=== PATIENT | male | born 1955 | race Caucasian/White ===

== ENCOUNTER → 2017-12-18 16:09 | Outpatient (CLI) | payer OTHER, SELFPAY ==
[2017-12-18 17:50] LABS: PSA,Total- Diagnostic 4.62 ng/mL (0.0-4.0)
== END ==
PROVIDERS: Family Provider Family Medicine; PCP Family Medicine; Visit Provider Urology
DX: C61 Malignant neoplasm of prostate (principal)
CPT/HCPCS: 36415; 84153

== ENCOUNTER → 2018-06-04 09:51 | Outpatient (CLI) | payer OTHER, SELFPAY ==
[2018-06-04 10:56] LABS: PSA,Total- Diagnostic 3.63 ng/mL (0.0-4.0)
== END ==
PROVIDERS: Family Provider Family Medicine; PCP Family Medicine; Referring Provider Urology; Visit Provider Urology
DX: C61 Malignant neoplasm of prostate (principal)
CPT/HCPCS: 36415; 84153

== ENCOUNTER → 2019-03-04 15:00 | Outpatient (CLI) | payer MEDICARE, OTHER, SELFPAY ==
[2016-05-05 08:30] VITALS: BMI 32.3
== END ==
PROVIDERS: Referring Provider Urology; Visit Provider Urology
DX: C61 Malignant neoplasm of prostate (principal)
CPT/HCPCS: 36415; 84153

== ENCOUNTER → 2020-03-08 09:36 | Outpatient (CLI) | payer MEDICARE, OTHER, SELFPAY ==
[2016-05-05 08:30] VITALS: BMI 32.3
[2020-03-08 11:38] LABS: PSA,Total - Annual Screen 3.09 ng/mL (0.00-4.00)
== END ==
PROVIDERS: Referring Provider Urology; Visit Provider Urology
DX: C61 Malignant neoplasm of prostate (principal)
CPT/HCPCS: 36415; 84153; G0103

== ENCOUNTER → 2021-03-29 11:08 | Outpatient (CLI) | payer MEDICARE, OTHER, SELFPAY ==
[2021-03-29 12:53] LABS: PSA,Total- Diagnostic 3.31 ng/mL (0.0-4.0)
[2021-03-29 13:52] LABS: Bacteria 0 SEEN /hpf (None Seen); Mucous, Urine 0 SEEN /hpf (<or=2+); Red Blood Cells-Urine 0 SEEN /hpf (0-5); Squamous Epithelial Cells - UA 0 SEEN /hpf (0-5); White Blood Cells 0 SEEN /hpf (0-5)
[2021-03-29 14:06] LABS: Color, Urine Yellow (Yellow); Glucose, Dipstick Normal (Normal); Ketone-Dipstick Negative (Negative); Leukocyte Esterase-Dipstick Negative /ul (Negative); Nitrite-Dipstick Negative (Negative); Occult Blood-Urine 10 /ul (Negative); Protein-Dipstick Negative (Negative); Specific Gravity, Urine 1.015 (1.002-1.030); Urine Bilirubin Dipstick Negative (Negative); Urine Clarity Clear (Clear); Urine Urobilinogen Normal (Normal)
== END ==
PROVIDERS: PCP Family Medicine; Referring Provider Nurse Practitioner Adult Health; Visit Provider Nurse Practitioner Adult Health
DX: C61 Malignant neoplasm of prostate (principal); R31.21 Asymptomatic microscopic hematuria
CPT/HCPCS: 36415; 81001; 84153

== ENCOUNTER 2021-09-05 14:56 | Outpatient (CLI) | payer MEDICARE, OTHER, SELFPAY | END 2021-09-05 23:59 | disposition short-term general hospital (02) | LOC: LAB 14:57 | PROVIDERS: PCP Family Medicine; Visit Provider Urology | DX: C61 Malignant neoplasm of prostate (principal) | CPT/HCPCS: 36415; 84153 ==

== ENCOUNTER 2021-09-07 10:55 | Outpatient (CLI) | payer MEDICARE, OTHER, SELFPAY ==
[2021-09-07 12:41] LABS: Anion Gap 8 (5-15); BUN 21 mg/dL (7-18); BUN/Creat Ratio 17.4 RATIO (10-20); Calcium,Total 8.3 mg/dL (8.5-10.1); Chloride 107 mmol/L (98-107); Creatinine, Serum 1.21 mg/dL (0.70-1.30); EST Glomerular Filtration Rate 64 mL/min (>60); Est Glom Filt Rate - Afr Amer 77 mL/min (>60); Glucose 101 mg/dL (74-106); Potassium 3.7 mmol/L (3.5-5.1); Sodium Level 140 mmol/L (136-145)
== END 2021-09-07 23:59 | disposition short-term general hospital (02) ==
LOC: LAB 10:57
PROVIDERS: PCP Family Medicine; Visit Provider Urology
DX: N40.1 Benign prostatic hyperplasia with lower urinary tract symptoms (principal)
CPT/HCPCS: 36415; 80048

== ENCOUNTER → 2022-03-09 | Outpatient (CLI) | payer MEDICARE, OTHER, SELFPAY ==
[2022-03-09 10:24] LABS: PSA,Total- Diagnostic 3.31 ng/mL (0.0-4.0)
== END | disposition home or self-care (01) ==
LOC: LAB 09:26
PROVIDERS: Visit Provider Urology
DX: C61 Malignant neoplasm of prostate (principal)
CPT/HCPCS: 36415; 84153

== ENCOUNTER → 2022-03-13 | Outpatient (CLI) | payer MEDICARE, OTHER, SELFPAY ==
[2022-03-13 11:03] LABS: Anion Gap 6 (5-15); BUN 24 mg/dL (7-18); BUN/Creat Ratio 16.3 RATIO (10-20); Calcium,Total 8.9 mg/dL (8.5-10.1); Chloride 108 mmol/L (98-107); Creatinine, Serum 1.47 mg/dL (0.70-1.30); EST Glomerular Filtration Rate 51 mL/min (>60); Est Glom Filt Rate - Afr Amer 61 mL/min (>60); Glucose 87 mg/dL (74-106); Potassium 3.9 mmol/L (3.5-5.1); Sodium Level 141 mmol/L (136-145)
== END | disposition home or self-care (01) ==
LOC: LAB 09:48
PROVIDERS: Referring Provider Registered Nurse; Visit Provider Registered Nurse
DX: M54.50 Low back pain, unspecified (principal)
CPT/HCPCS: 36415; 80048

== ENCOUNTER → 2022-04-03 | Outpatient (CLI) | payer MEDICARE, OTHER, SELFPAY ==
--- NOTE | 2022-04-03 07:54 | MRI_ITS ---
STUDY: MR PELVIS WITH T WITHOUT CONTRAST REASON FOR EXAM: Male, 67 years old. MALIGNANT NEOPLASM OF PROSTATE TECHNIQUE: Standardized fat and water weighted pulse sequences were obtained in all 3 orthogonal planes, pre-and post contrast administration. IV Yes yes was administered for the contrast portion of the examination. COMPARISON: None. FINDINGS: Prostate: Prostate measures 4.62 cm AP by 4.67 cm transverse by 4.91 cm craniocaudal. There is no evidence of extension beyond the prostate capsule. Central zone: On series 13 image 26 there is an enhancing nodule within the anterior central zone. This measures 1.8 cm transverse by 1.5 cm AP best visualized on series 13 image 26. This may represent the patient''s prostate carcinoma. Peripheral zone no evidence of focal abnormal contrast enhancement or nodule. Normal urinary bladder. Normal visualized small intestine. Normal visualized colon. There is no pelvic fluid. There is no pelvic mass lesion or lymphadenopathy. Normal visualized pelvic arteries. Normal osseous structures. Normal abdominal wall. MRI/Pelvis W/WO Contrast IMPRESSION: Enlarged prostate. Enhancing nodule within the anterior left central zone detailed in body of report. This may represent the patient''s biopsy proven prostate carcinoma. Correlation advised. Electronically Signed: Awais Riggins MD, TOMASZ at 10:02 EDT ,
== END | disposition home or self-care (01) ==
PROVIDERS: Referring Provider Urology; Visit Provider Urology
DX: C61 Malignant neoplasm of prostate (principal)
CPT/HCPCS: 72197; A9575

== ENCOUNTER → 2022-09-13 | Outpatient (CLI) | payer MEDICARE, OTHER, SELFPAY ==
[2022-09-13 16:40] LABS: PSA,Total- Diagnostic 3.44 ng/mL (0.0-4.0)
== END | disposition home or self-care (01) ==
LOC: LAB.FUTURE 15:10
PROVIDERS: Referring Provider Urology; Visit Provider Urology
DX: R97.20 Elevated prostate specific antigen [PSA] (principal)
CPT/HCPCS: 36415; 84153

== ENCOUNTER → 2023-03-15 | Outpatient (CLI) | payer MEDICARE, OTHER, SELFPAY ==
[2023-03-15 10:44] LABS: PSA,Total- Diagnostic 2.92 ng/mL (0.0-4.0)
== END | disposition home or self-care (01) ==
LOC: LAB 09:34
PROVIDERS: Referring Provider Urology; Visit Provider Urology
DX: C61 Malignant neoplasm of prostate (principal)
CPT/HCPCS: 36415; 84153

== ENCOUNTER → 2024-03-18 | Outpatient (CLI) | payer MEDICARE, OTHER, SELFPAY ==
[2024-03-18 13:44] LABS: PSA,Total- Diagnostic 3.92 ng/mL (0.0-4.0)
== END | disposition home or self-care (01) ==
LOC: LAB 12:32
PROVIDERS: Referring Provider Urology; Visit Provider Urology
DX: C61 Malignant neoplasm of prostate (principal)
CPT/HCPCS: 36415; 84153

== ENCOUNTER 2025-04-07 11:54 | Day surgery (SDC) | payer OTHER, SELFPAY ==
--- NOTE | 2025-04-02 17:13 | PAT.ANE_ITS ---
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 When Was Last Pacemaker Check QUESTION #4 FULL TEXT: You/Your Family Experience fever (hyperthermia) with Anesthesia Last Oral Intake Last Oral intake: Last Oral Intake NPO since Meds taken in AM with sips of water? Meds patient instructed to take am of surgery PONV PONV - selvage machine operator: PONV - selvage machine operator Female No 04/02/25 11:25 HX of Motion Sickness No 04/02/25 11:25 HX of N/V After Surgery No 04/02/25 11:25 Non-Smoker Yes 04/02/25 11:25 Duration of Surgery greater No 04/02/25 11:25 than 60 minutes Number of Risk Factors 1 04/02/25 11:25 PONV Score Low Risk 04/02/25 11:25 Respiratory Assessment Respiratory Assessment - selvage machine operator: Respiratory Tract Infection Hx - selvage machine operator Hx Respiratory Tract Infection No 04/02/25 11:25 STOP Sleep Apnea STOP Sleep Apnea - selvage machine operator: STOP Sleep Apnea - selvage machine operator Hx Hypertension Yes: CONTROLLED WITH MED 04/02/25 11:25 Hx Sleep Apnea Yes 04/02/25 11:25 CPAP Yes 04/02/25 11:25 BIPAP No 04/02/25 11:25 Do you snore loudly (louder than talking or can be heard Do you often feel tired/ fatigued/ sleepy during daytime? Has anyone observed you stop breathing during sleep? STOP Results Positive 04/02/25 11:25 QUESTION #5 FULL TEXT : Do you snore loudly (louder than talking or can be heard through closed doors)? 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 Specify any problems Hx of Preganancy in last 3 N/A 04/02/25 11:25 Months Nurse Filling Out Transfusion DSCHRIBER 04/02/25 11:25 & Questions: Date: 04/02/25 04/02/25 11:25 Time: 11:04/02/25 11:25 Patient unable to answer at this time (ie. confused, unrespo /Reproduction History /Reproductive History - selvage machine operator: /Reproductive Hx- selvage machine operator Hx Now No 04/02/25 11:25 Gestational Age (in weeks): EDC: Hx Hx Para Hx Section SAB No 04/02/25 11:25 PFSH Medical History (Updated 04/02/25 @ 13:13 by Martha Krishnamurthy) Loss of hearing Wears glasses Arthritis Low iron Fatty liver Restless legs Back pain Difficulty swallowing History of diverticulitis Non-smoker CPAP (continuous positive airway pressure) dependence Shortness of breath on exertion Leg cramps History of edema History of echocardiogram History of stress test Cardiology follow-up encounter History of irregular heartbeat Grade A2 albuminuria Exophthalmos Prostate cancer Left ventricular hypertrophy Dyslipidemia Essential (primary) hypertension Chronic kidney disease, stage 3b Home Medications ?Medication ?Instructions ?Recorded ?Last Taken ?Type tamsulosin 0.4 mg capsule 0.4 mg PO DAILY 10/13/14 22:00 History evolocumab 140 mg/mL subcutaneous 140 mg subcut Q2W Unknown History syringe ferrous sulfate 325 mg (65 mg 325 mg PO QDAY 11/21/24 Unknown History iron) tablet finasteride 5 mg tablet 5 mg PO QDAY 11/21/24 Unknow n History furosemide 20 mg tablet 20 mg PO QAM 11/21/24 Unknow n History hydralazine 100 mg tablet 100 mg PO BID 11/21/24 Unkno wn History dapagliflozin propanediol 5 mg 10 mg PO QAM 11/24/24 0 04/01/25 History tablet (Farxiga) amlodipine 2.5 mg tablet 2.5 mg PO DAILY 04/02/25 Unk nown History carvedilol 25 mg tablet 25 mg PO BID 04/02/25 Unknow n History losartan 100 mg tablet 100 mg PO QHS 04/02/25 Unkno wn History Allergy/AdvReac Type Severity Reaction Status Date / Time cephalexin Allergy Intermediate Rash Verified 04/02/25 11:19 isosorbide Allergy Intermediate Other Verified 04/02/25 11:19 pravastatin Allergy Intermediate Other Verified 04/02/25 11:19 lisinopril Allergy Other Verified 04/02/25 11:19 Family History Mother Cancer Brother CAD (coronary artery disease) Hypertension Father Hypertension Heart disease Myocardial infarction Surgical History (Updated 04/02/25 @ 13:13 by Martha Krishnamurthy) History of cardiac catheterization History of esophagogastroduodenoscopy (EGD) Hx of cystoscopy H/O resection of large bowel History of tonsillectomy and adenoidectomy H/O hernia repair Social History Smoking Status: Never smoker Audit: Pertinent Findings Pertinent Findings EKG Perinent findings: 02/12/2015. Normal sinus rhythm. Left anterior fascicular block. Poor R wave progression. Stress test pertinent findings: 11/30/2020. EKG is negative for inducible ischemia. EF is 70%. Negative for gross ischemia or infarct. Echo (EF%) pertinent findings: 02/09/25. EF=55%. RVSP =21mmHg. No aortic stenosis. Heart catheterization pertinent findings: 08/16/2021. EF of 65%. 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 Mid RCA has a 60% stenosis. Moderate CAD will be managed medically. Consult pertinent findings: March 31, 2025. Dr. Taylor. 1. Coronary artery disease in [place] artery-moderate RCA disease on heart cath in 2021. Denies angina. 2. Aortic regurgitation?mild to moderate in February 2025. Slight progression from previous. Ascending aorta is 3.9 cm. 3. Hypertension?well-controlled on amlodipine, Coreg, hydralazine and losartan. Additional pertinent findings: Holter monitor. 05/12/2023. Baseline rhythm was sinus rhythm. No evidence of atrial flutter or fibrillation. No evidence of ventricular tachycardia. Frequent PACs, total burden was 8.9%. Rare PVCs, total burden less than 0.01% Recommendation Anesthesia Recommendation Anesthesia recommendation: OPTIMIZED for anesthesia
[2025-04-07] VITALS (8 sets, daily range): BP systolic 103–152; BP diastolic 64–88; PULSE 60–68; RESP 16; TEMP 36.2; O2SAT 95–99; BMI 32.9
--- NOTE | 2025-04-07 12:24 | PCM.HP.STD ---
HPI - General General Date of Admission: 04/07/25 Date of Service: 04/07/25 Chief Complaint: GERD, Dysphagia and Screening colon HPI Narrative CARLOTA HERNANDEZ, is a 70 M who presents for c/o difficulty swallowing and time for screening colonoscopy. He reports history of diverticulitis with bowel resection and occasional constipation, but that is not his concern today. He states that he's been told that he has frequent coughing spells after eating mainly. He denies noting any specific foods that trigger difficulties, he states he feels that he simply eats too fast and causes things to get hung up. 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 MBSS completed at [facility]; suggestive of reduced UES opening and reduced esophageal clearance w/bolus retention. Recommendations: regular diet/thin liquids, small and alternating bites/sips, pills one at a time, full upright position x60min after all PO intake, no ST warranted for oropharyngeal swallow, GI referral for esophageal function. He reports rare incidence of abdominal pain after eating, but this goes away after a BM. He denies difficulty chewing, rarely has heartburn, reflux, bloating, diarrhea, hematochezia, and melena. He reports occasional constipation but does feel that he needs to do anything about it. [facility] Medical History Loss of hearing Wears glasses Arthritis Low iron Fatty liver Restless legs Back pain Difficulty swallowing History of diverticulitis Non-smoker CPAP (continuous positive airway pressure) dependence Shortness of breath on exertion Leg cramps History of edema History of echocardiogram History of stress test Cardiology follow-up encounter History of irregular heartbeat Grade A2 albuminuria Exophthalmos Prostate cancer Left ventricular hypertrophy Dyslipidemia Essential (primary) hypertension Chronic kidney disease, stage 3b Home Medications ?Medication ?Instructions ?Recorded ?Last Taken ?Type tamsulosin 0.4 mg capsule 0.4 mg PO DAILY 10/13/14 05/04/16 22:00 History evolocumab 140 mg/mL subcutaneous 140 mg subcut Q2W 11/21/24 Unknown History syringe ferrous sulfate 325 mg (65 mg 325 mg PO QDAY 11/21/24 Unknown History iron) tablet finasteride 5 mg tablet 5 mg PO QDAY 11/21/24 Unknown History furosemide 20 mg tablet 20 mg PO QAM 11/21/24 Unknown History hydralazine 100 mg tablet 100 mg PO BID 11/21/24 04/07/25 History dapagliflozin propanediol 5 mg 10 mg PO QAM 11/24/24 04/01/25 History tablet (Farxiga) amlodipine 2.5 mg tablet 2.5 mg PO DAILY 04/02/25 04/07/25 History carvedilol 25 mg tablet 25 mg PO BID 04/02/25 04/07/25 History losartan 100 mg tablet 100 mg PO QHS 04/02/25 Unknown History Allergy/AdvReac Type Severity Reaction Status Date / Time cephalexin Allergy Intermediate Rash Verified 04/07/25 12:14 isosorbide Allergy Intermediate Other Verified 04/07/25 12:14 pravastatin Allergy Intermediate Other Verified 04/07/25 12:14 lisinopril Allergy Other Verified 04/07/25 12:14 Family History Mother Cancer Brother CAD (coronary artery disease) Hypertension Father Hypertension Heart disease Myocardial infarction Surgical History History of cardiac catheterization History of esophagogastroduodenoscopy (EGD) Hx of cystoscopy H/O resection of large bowel History of tonsillectomy and adenoidectomy H/O hernia repair Social History Smoking Status: Never smoker ROS Constitutional Constitutional: Denies fatigue, fever(s), poor appetite, weight gain or weight loss Gastrointestinal Gastrointestinal: Denies belching, bloating, change in bowel habits, change in stool character, chewing difficulty, coffee ground emesis, constipation, cramping, diarrhea, dyspepsia, dysphagia, early satiety, excessive flatus, fecal incontinence, heartburn, hematemesis, hematochezia, hemorrhoids, loose stools, melena, nausea, odynophagia, rectal bleeding, tenesmus, vomiting or weight changes Vital Signs Vital Signs Vital Signs: 04/07/25 12:17 04/07/25 12:17 Temperature 97.2 F L Temperature Source Temporal Pulse Rate 60 Respiratory Rate 16 Respiratory Pattern Normal Blood Pressure 152/88 H Blood Pressure Mean 109 Blood Pressure Source Monitor Blood Pressure Position Sitting Blood Pressure Location Left Arm Pulse Ox 99 Oxygen Delivery Method Room Air Weight Weight: 236 lb Body Mass Index (BMI) 32.9 Physical Exam Const alert, oriented x3, no apparent distress and healthy appearing General Appearance: cooperative GI normal to inspection, nondistended, normoactive bowel sounds, soft to palpation, non-tender and non-distended Percussion: normal to percussion Rectal Exam: deferred Assessment & Plan Assessment/Plan (1) Encounter for screening colonoscopy: (2) Dysphagia: QUALIFIERS: Dysphagia type: esophageal phase Qualified Code(s): R13.19 - Other dysphagia PLAN: Assessment and Plan Assessment and Plan (1) Dysphagia: Status: Acute Qualifiers: Dysphagia type: esophageal phase Qualified Code(s): R13.19 - Other dysphagia (2) Encounter for screening colonoscopy: Status: Acute Medications: New omeprazole before breakfast and dinner 40 mg PO BID 60 caps 2RF Plan CARLOTA HERNANDEZ, is a 69 M who presents to the office today for establishment with [facility] for c/o difficulty swallowing and time for screening colonoscopy. Discussed esophageal manometry with him in order to diagnose achalasia, he absolutely refuses to have this test performed, states I just want someone to look at my throat. schedule EGD schedule colonoscopy increase omeprazole to 40mg PO twice daily, before breakfast and dinner office FU after endoscopies
[2025-04-07] MEDS: Lactated Ringers 1,000 ML 15 ML IV (12:25)
--- NOTE | 2025-04-07 12:31 | PRE.ANES_ITS ---
ASA Classification* ASA Classification ASA Classification: 3 Assessment & Plan Anesthesia* Anesthesia Assessment Anesthesia Assessment: Discussed sedation and/or anesthesia options, risks, benefits, and alternatives with patient/parents/legal guardian/POA. Questions invited. The patient/parents/legal guardian/POA seems to understand and agrees to proceed with anesthesia plan. Reviewed the physical assessment, medical history, allergy history and patient home medications list prior to surgery/procedure/anesthetic and documented any changes. Performed airway and anesthesia risk assessments. Anesthesia Type Anesthesia Type: MAC History Source History Obtained from:: Patient and Chart Anesthesia Focused Assessment* Temperature: 97.2 F Pulse Rate: 60 Blood Pressure: 152/88 Respiratory Rate: 16 Pulse Ox: 99 Oxygen Delivery Method: Room Air Airway Assessment Mouth opens: >3 cm Mallampati Score: III Teeth Condition: Caps/Crowns (Patient has a crown left lower molar. It is tight.) and Missing (Patient missing several teeth. Rest are tight.) Neck Range of motion (ROM): Limited ROM (Slight Decrease) Labs Anesthesia Preop lab: CBC WBC 8.5 K/mm3 (4.4-11.0) 02/16/15 05:35 02/16/15 RBC 4.83 M/mm3 (4.6-6.2) 02/16/15 05:35 02/16/15 Hgb 14.9 g/dl (13.0-16.5) 02/16/15 05:35 02/16/15 Hct 41.7 % (40-54) 02/16/15 05:35 02/16/15 Plt Count 202 K/mm3 (150-450) 02/16/15 05:35 02/16/15 CHEMISTRY Potassium 3.9 mmol/L (3.5-5.1) 03/13/22 09:49 03/13/22 Sodium 141 mmol/L (136-145) 03/13/22 09:49 03/13/22 Magnesium 2.4 mg/dL (1.8-2.4) 02/16/15 05:35 02/16/15 Phosphorus 3.1 mg/dL (2.5-4.9) 02/15/15 06:40 02/15/15 BUN 24 mg/dL (7-18) H 03/13/22 09:49 03/13/22 Creatinine 1.47 mg/dL (0.70-1.30) H 03/13/22 09:49 Glucose 87 mg/dL (74-106) 03/13/22 09:49 03/13/22 TSH 1.03 uIU/mL (0.358-3.74) 02/15/15 06:40 COAG Pre-Assessment Diagnosis/Proposed Procedure Planned Operative Procedure(s): EGD/CSCOPE Anesthesia History 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 When Was Last Pacemaker Check QUESTION #4 FULL TEXT: You/Your Family Experience fever (hyperthermia) with Anesthesia Last Oral Intake Last Oral intake: Last Oral Intake NPO since 10:00 04/07/25 12:17 Meds taken in AM with sips of Yes 04/07/25 12:17 water? Meds patient instructed to see mar 04/07/25 12:17 take am of surgery Any additional information?: Yes NPO since: 08:00 (Patient finished his prep at 8 AM. AM meds at 10 AM with sips of water.) Meds taken in AM with sips of water?: Yes PONV PONV - audiovisual production specialist: PONV - audiovisual production specialist Female No 04/02/25 11:25 HX of Motion Sickness No 04/02/25 11:25 HX of N/V After Surgery No 04/02/25 11:25 Non-Smoker Yes 04/02/25 11:25 Duration of Surgery greater No 04/02/25 11:25 than 60 minutes Number of Risk Factors 1 04/02/25 11:25 PONV Score Low Risk 04/02/25 11:25 Height & Weight Height & Weight: Anesthesia: Height & Weight Height 5 ft 11 in 04/07/25 12:17 Weight: 107.048 kg 04/07/25 12:17 Body Mass Index (BMI) 32.9 04/07/25 12:17 Respiratory Assessment Respiratory Assessment - audiovisual production specialist: Respiratory Tract Infection Hx - audiovisual production specialist Hx Respiratory Tract Infection No 04/02/25 11:25 STOP Sleep Apnea STOP Sleep Apnea - audiovisual production specialist: STOP Sleep Apnea - audiovisual production specialist Hx Hypertension Yes: CONTROLLED WITH MED 04/02/25 11:25 Hx Sleep Apnea Yes 04/02/25 11:25 CPAP Yes 04/02/25 11:25 BIPAP No 04/02/25 11:25 Do you snore loudly (louder than talking or can be heard Do you often feel tired/ fatigued/ sleepy during daytime? Has anyone observed you stop breathing during sleep? STOP Results Positive 04/02/25 11:25 QUESTION #5 FULL TEXT : Do you snore loudly (louder than talking or can be heard through closed doors)? Tobacco Use History Tobacco Use History - audiovisual production specialist: Tobacco Use History - audiovisual production specialist Tobacco Use Smoking Status Never smoker 04/02/25 11:25 Hx Tobacco Use No 04/02/25 11:25 Years Smoking Packs Smoked per Day Smoking Cessation Date was within the last 15 years Hx Smoking Cessation Date Hx Smoking Cessation Counseling Hematologic Medial History Hematologic Hx - audiovisual production specialist: Hematologic Medical Hx - finding fastener Hx of Blood Transfusion No 04/02/25 11:25 Hx of Transfusion in last 3 No 04/02/25 11:25 Months Date of Last Transfusion (if within last 3 months) Ever experience any problems No 04/02/25 11:25 with transfusion(s)? Specify any problems Hx of Preganancy in last 3 N/A 04/02/25 11:25 Months Nurse Filling Out Transfusion DSCHRIBER 04/02/25 11:25 & Questions: Date: 04/02/25 04/02/25 11:25 Time: 11:04/02/25 11:25 Patient unable to answer at this time (ie. confused, unrespo /Reproduction History /Reproductive History - audiovisual production specialist: /Reproductive Hx- audiovisual production specialist Hx Now No 04/02/25 11:25 Gestational Age (in weeks): EDC: Hx Hx Para Hx Section SAB No 04/02/25 11:25 Active Medications Active Medications: Current Medications Generic Name Dose Route Start Last Admin Trade Name [place] PRN Reason Stop Dose Admin Lactated Ringer's 1,000 mls @ 15 mls/hr 04/07/25 12:00 04/07/25 12:25 IV 15 mls/hr .Q48H LYDIA Administration PFSH Medical History Loss of hearing Wears glasses Arthritis Low iron Fatty liver Restless legs Back pain Difficulty swallowing History of diverticulitis Non-smoker CPAP (continuous positive airway pressure) dependence Shortness of breath on exertion Leg cramps History of edema History of echocardiogram History of stress test Cardiology follow-up encounter History of irregular heartbeat Grade A2 albuminuria Exophthalmos Prostate cancer Left ventricular hypertrophy Dyslipidemia Essential (primary) hypertension Chronic kidney disease, stage 3b Home Medications ?Medication ?Instructions ?Recorded ?Last Taken ?Type tamsulosin 0.4 mg capsule 0.4 mg PO DAILY 10/13/14 22:00 History evolocumab 140 mg/mL subcutaneous 140 mg subcut Q2W Unknown History syringe ferrous sulfate 325 mg (65 mg 325 mg PO QDAY 11/21/24 Unknown History iron) tablet finasteride 5 mg tablet 5 mg PO QDAY 11/21/24 Unknow n History furosemide 20 mg tablet 20 mg PO QAM 11/21/24 Unknow n History hydralazine 100 mg tablet 100 mg PO BID 11/21/2404/07 History dapagliflozin propanediol 5 mg 10 mg PO QAM 11/24/24 0 04/01/25 History tablet (Farxiga) amlodipine 2.5 mg tablet 2.5 mg PO DAILY 04/02/2509/30 History carvedilol 25 mg tablet 25 mg PO BID 04/02/25 History losartan 100 mg tablet 100 mg PO QHS 04/02/25 Unkno wn History Allergy/AdvReac Type Severity Reaction Status Date / Time cephalexin Allergy Intermediate Rash Verified 04/07/25 12:14 isosorbide Allergy Intermediate Other Verified 04/07/25 12:14 pravastatin Allergy Intermediate Other Verified 04/07/25 12:14 lisinopril Allergy Other Verified 04/07/25 12:14 Family History Mother Cancer Brother CAD (coronary artery disease) Hypertension Father Hypertension Heart disease Myocardial infarction Surgical History History of cardiac catheterization History of esophagogastroduodenoscopy (EGD) Hx of cystoscopy H/O resection of large bowel History of tonsillectomy and adenoidectomy H/O hernia repair Social History Smoking Status: Never smoker Review of Systems (Anesthesia) ROS Narrative System reviewed and no additional complaints, except as documented.
--- NOTE | 2025-04-07 13:00 | COLBX_PTH ---
PATIENT: CARLOTA HERNANDEZ LOC: EN U#:[id number] AGE/SX: 70/M ROOM: RE04/07/[address]: Dr. Aureliano Green DO : 1955 BED: DIS: 04/07/2025 SPEC #: [id number] RECD: 04/07/25 13:57 STATUS: BESSY LUCIO #: [id number] WEI: 04/07/25 13:[address]: Aureliano Green DEPT: SURGICAL PATHOLOGY RECD BY: Dixon Carnes ENTERED: 04/07/25 14:23 SP TYPE: COLON BX OTHR DR: Dr. Kevin Gallegos DO Tissues: A - Esophagus, NOS B - Ascending colon C - Ileum, NOS D - COLON BIOPSY E - Sigmoid colon biopsy Procedures: Surgery Specimen Level IV HEADER OPERATION: Colonoscopy, EGD, biopsy, dilation, polypectomy PRE-OP DIAGNOSIS: Dysphagia, encounter for screening colonoscopy TISSUE SUBMITTED: A- Distal esophagus biopsy, B- Ascending polyp, C- Terminal ileum biopsy, D- Hepatic flexure polyp, E- Sigmoid polyps x2 MICROSCOPIC DIAGNOSIS A. 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 Benign squamous mucosa. Note: The diagnosis depends on the location of the biopsy and the extent of the mucosal irregularity. If the biopsy originates from the tubular esophagus and the mucosal irregularity extends at least 1 cm above the top of the gastric folds, this represents Lea mucosa. If the biopsy originates from the gastric cardia and/or the mucosal irregularity is less than 1 cm in extent, this represents intestinal metaplasia. B. Ascending colon, polyp, biopsy: Tubulovillous adenoma, multiple fragments. C. Terminal ileum, biopsy: No specific pathologic change. D. Hepatic flexure, polyp, biopsy: Tubular adenoma. E. Sigmoid colon, polyp, biopsy: Tubular adenoma. MICROSCOPIC DESCRIPTION Slides are reviewed. GROSS DESCRIPTION A. Received in fixative is one container labeled with the patient's name and designated Distal esophagus biopsy. The specimen consists o two irregular fragments of light potter soft tissue that measure 0.3 and 0.4 cm. The specimen is totally submitted in one cassette. B. Received in fixative is one container labeled with the patient's name and designated Ascending polyp. The specimen consists of multiple irregular fragments of light potter soft tissue that in aggregate measure 1.8 x 0.8 x 0.3 cm. The specimen is totally submitted in one cassette. C. Received in fixative is one container labeled with the patient's name and designated Terminal ileum biopsy. The specimen consists of two irregular fragments of light potter soft tissue that measure 0.3 and 0.9 cm. The specimen is totally submitted in one cassette. D. Received in fixative is one container labeled with the patient's name and designated Hepatic flexure polyp. The specimen consists of four irregular fragments of light potter soft tissue that measure <0.1 to 0.4 cm. The specimen is totally submitted in one cassette. E. Received in fixative is one container labeled with the patient's name and designated Sigmoid polyp. The specimen consists of five irregular fragments of light potter soft tissue that measure <0.1 to 0.4 cm. The specimen is totally submitted in one cassette. PA 04/07/2025 CPT:50836c9
--- NOTE | 2025-04-07 13:36 | OP.EGD_ITS ---
Patient Name: Darnell Ureña Procedure Date: 04/07/2025 12:45 PM Date of : 1955 Age: 70 Procedure: Upper GI endoscopy Indications: Dysphagia Providers: Aureliano Green DO Medicines: Monitored Anesthesia Care Patient Profile: This is a 70 year old male. Refer to note in patient chart for documentation of history and physical. Patient has symptoms of dysphagia with solids. Complications: No immediate complications. Procedure: Pre-Anesthesia Assessment: - Prior to the procedure, a History and Physical was performed, and patient medications and allergies were reviewed. The patient is competent. The risks and benefits of the procedure and the sedation options and risks were discussed with the patient. All questions were answered and informed consent was obtained. Patient identification and proposed procedure were verified by the physician in the pre-procedure area. Mental Status Examination: alert and oriented. Airway Examination: normal oropharyngeal airway and neck mobility. Respiratory Examination: clear to auscultation. CV Examination: normal. Prophylactic Antibiotics: The patient does not require prophylactic antibiotics. Prior Anticoagulants: The patient has taken no anticoagulant or antiplatelet agents except for NSAID medication. ASA Grade Assessment: II - A patient with mild systemic disease. After reviewing the risks and benefits, the patient was deemed in satisfactory condition to undergo the procedure. The anesthesia plan was to use monitored anesthesia care (MAC). Immediately prior to administration of medications, the patient was re-assessed for adequacy to receive sedatives. The heart rate, respiratory rate, oxygen saturations, blood pressure, adequacy of pulmonary ventilation, and response to care were monitored throughout the procedure. The physical status of the patient was re-assessed after the procedure. After obtaining informed consent, the endoscope was passed under direct vision. Throughout the procedure, the patient's blood pressure, pulse, and oxygen saturations were monitored continuously. The Colonoscope was introduced through the mouth, and advanced to the second part of duodenum. The upper GI endoscopy was accomplished without difficulty. The patient tolerated the procedure well. Scope In: 12:58:36 PM Scope Out: 1:04:10 PM Total Procedure Duration Time 0 hours 5 minutes 34 seconds Findings: A moderate Schatzki ring was found at the gastroesophageal junction. A guidewire was placed and the scope was withdrawn. Dilation was performed with a Savary dilator with no resistance at 60 Fr. The dilation site was examined and showed moderate mucosal disruption. Estimated blood loss was minimal. The Z-line was irregular and was found 40 cm from the incisors. Biopsies were taken with a cold forceps for histology. Verification of patient identification for the specimen was done. Estimated blood loss was minimal. The entire examined stomach was normal. Diffuse moderate mucosal changes were found in the entire duodenum. Impression: - Moderate Schatzki ring. Dilated. - Z-line irregular, 40 cm from the incisors. Biopsied. - Normal stomach. - Mucosal changes in the duodenum secondary to iron. Recommendation: - Discharge patient to home. - Resume previous diet. - Continue present medications. - Await pathology results. Procedure Code(s): --- Professional --- 86526, Esophagogastroduodenoscopy, flexible, transoral; with insertion of guide wire followed by passage of dilator(s) through esophagus over guide wire 39444, 59,51, Esophagogastroduodenoscopy, flexible, transoral; with biopsy, single or multiple CPT copyright 2021 [employer]. All rights reserved. The codes documented in this report are preliminary and upon low pressure boiler operator review may be revised to meet current compliance requirements. Aureliano Green DO 04/07/2025 1:35:38 PM This report has been signed electronically. Number of Addenda: 0 Note Initiated On: 04/07/2025 12:45 PM
--- NOTE | 2025-04-07 13:36 | OP.PROVAT_ITS ---
04/07/2025 Kevin Gallegos Do Re : Upper GI endoscopy procedure for Darnell Niarnjan Dear Dr. Gallegos This procedure was performed on Monday, April 07, 2025. My impressions and recommendations are as follows: Impressions : - Moderate Schatzki ring. Dilated. - Z-line irregular, 40 cm from the incisors. Biopsied. - Normal stomach. - Mucosal changes in the duodenum secondary to iron. Recommendations : - Discharge patient to home. - Resume previous diet. - Continue present medications. - Await pathology results. My findings are described in the full procedure note, which is enclosed. If I can be of further assistance, please feel free to contact me at . Sincerely, Aureliano Green, 04/07/2025 1:35:38 PM This report has been signed electronically.
--- NOTE | 2025-04-07 13:38 | PCM.POST.ANE ---
Anesthesia: Postop Eval I Current Vital Signs Temperature: 97.2 F Pulse Rate: 64 Blood Pressure: 107/67 Respiratory Rate: 16 Pulse Ox: 96 Oxygen Delivery Method: Room Air Assessment Airway patent: Yes Spontaneous unlabored respirations: Yes Mental status: Awake and Calm nausea: No Vomiting: No Anesthesia Complication: No Fluid Hydration Crystalloid volume administer (ml): 700 Total IV fluid infused: 700 Progress Note Anesthesia document: Postop Eval 1 completed: Yes
--- NOTE | 2025-04-07 13:42 | OP.PROVAT_ITS ---
04/07/2025 Kevin Gallegos Do Re : Colonoscopy procedure for Darnell Niranjan Dear Dr. Gallegos This procedure was performed on Monday, April 07, 2025. My impressions and recommendations are as follows: Impressions : - Diverticulosis in the entire examined colon. - Five 11 mm polyps in the sigmoid colon, at the hepatic flexure and in the ascending colon, removed with a hot snare. Resected and retrieved. - Mild inflammation was found in the ileum secondary to ileitis. Biopsied. Recommendations : - Discharge patient to home. - Resume previous diet. - Continue present medications. - Await pathology results. - Repeat colonoscopy in 3 years for surveillance. My findings are described in the full procedure note, which is enclosed. If I can be of further assistance, please feel free to contact me at . Sincerely, Aureliano Green, 04/07/2025 1:41:38 PM This report has been signed electronically.
--- NOTE | 2025-04-07 13:42 | OP.COLON_ITS ---
Patient Name: Darnell Ureña Procedure Date: 04/07/2025 1:04 PM Date of : 1955 Age: 70 Procedure: Colonoscopy Indications: Screening for colorectal malignant neoplasm Providers: Aureliano Green DO Medicines: Monitored Anesthesia Care Patient Profile: This is a 70 year old male. Refer to note in patient chart for documentation of history and physical. Patient has symptoms of dysphagia with solids. Last Colonoscopy: several years ago. Complications: No immediate complications. Procedure: Pre-Anesthesia Assessment: - Prior to the procedure, a History and Physical was performed, and patient medications and allergies were reviewed. The patient is competent. The risks and benefits of the procedure and the sedation options and risks were discussed with the patient. All questions were answered and informed consent was obtained. Patient identification and proposed procedure were verified by the physician in the pre-procedure area. Mental Status Examination: alert and oriented. Airway Examination: normal oropharyngeal airway and neck mobility. Respiratory Examination: clear to auscultation. CV Examination: normal. Prophylactic Antibiotics: The patient does not require prophylactic antibiotics. Prior Anticoagulants: The patient has taken no anticoagulant or antiplatelet agents except for NSAID medication. ASA Grade Assessment: II - A patient with mild systemic disease. After reviewing the risks and benefits, the patient was deemed in satisfactory condition to undergo the procedure. The anesthesia plan was to use monitored anesthesia care (MAC). Immediately prior to administration of medications, the patient was re-assessed for adequacy to receive sedatives. The heart rate, respiratory rate, oxygen saturations, blood pressure, adequacy of pulmonary ventilation, and response to care were monitored throughout the procedure. The physical status of the patient was re-assessed after the procedure. After I obtained informed consent, the scope was passed under direct vision. Throughout the procedure, the patient's blood pressure, pulse, and oxygen saturations were monitored continuously. The Colonoscope was introduced through the anus and advanced to the terminal ileum. The colonoscopy was performed without difficulty. The patient tolerated the procedure well. The quality of the bowel preparation was adequate. The terminal ileum, ileocecal valve, appendiceal orifice, and rectum were photographed. Scope In: 1:06:21 PM Scope Withdrawal Time 0 hours 19 minutes 47 seconds Scope Out: 1:28:25 PM Total Procedure Duration Time 0 hours 22 minutes 4 seconds Findings: The perianal and digital rectal examinations were normal. Multiple small and large-mouthed diverticula were found in the entire colon. Five sessile polyps were found in the sigmoid colon, hepatic flexure and ascending colon. The polyps were 11 mm in size. These polyps were removed with a hot snare. Resection and retrieval were complete. Verification of patient identification for the specimen was done. Estimated blood loss was minimal. Patchy mild inflammation characterized by congestion (edema) was found in the terminal ileum. Biopsies were taken with a cold forceps for histology. Verification of patient identification for the specimen was done. Estimated blood loss was minimal. There was evidence of a prior end-to-end colo-colonic anastomosis in the recto-sigmoid colon. This was patent and was characterized by healthy appearing mucosa. The anastomosis was traversed. Impression: - Diverticulosis in the entire examined colon. - Five 11 mm polyps in the sigmoid colon, at the hepatic flexure and in the ascending colon, removed with a hot snare. Resected and retrieved. - Mild inflammation was found in the ileum secondary to ileitis. Biopsied. Recommendation: - Discharge patient to home. - Resume previous diet. - Continue present medications. - Await pathology results. - Repeat colonoscopy in 3 years for surveillance. Procedure Code(s): --- Professional --- 82888, Colonoscopy, flexible; with removal of tumor(s), polyp(s), or other lesion(s) by snare technique 85336, 59, Colonoscopy, flexible; with biopsy, single or multiple CPT copyright 2021 [employer]. All rights reserved. The codes documented in this report are preliminary and upon human relations professor review may be revised to meet current compliance requirements. Aureliano Green DO 04/07/2025 1:41:38 PM This report has been signed electronically. Number of Addenda: 0 Note Initiated On: 04/07/2025 1:04 PM
--- NOTE | 2025-04-07 14:35 | PCM.POSTANE2 ---
Anesthesia Postop Eval I Sum Postop Eval Completion status Anesthesia document: Postop Eval 1 completed: Yes Anesthesia Postop Eval I Summary Anesthesia Postop Eval I Summary: Anesthesia Postop Eval I: Assessment Summary Airway patent Yes 04/07/25 13:39 [email or web address] Spontaneous unlabored Yes 04/07/25 13:39 [email or web address] respirations Mental status Awake,Calm 04/07/25 13:39 [email or web address] nausea No 04/07/25 13:39 [email or web address] Vomiting No 04/07/25 13:39 [email or web address] Anesthesia Postop Eval I: Fluid Summary Crystalloid volume administer 700 04/07/25 13:39 [email or web address] (ml) Colloids volume administered ( ml) Blood Product volume administered (ml) Total IV fluid infused 700 04/07/25 13:39 [email or web address] Anesthesia Postop Eval I: Summary Notes Anesthesia Complication No 04/07/25 13:39 [email or web address] Anesthesia Complication Comment: Post-operative progress note Anesthesia: Postop Eval II Evaluation Mental status: Awake Pain Level: 0 nausea: No Vomiting: No
== END 2025-04-07 14:25 | disposition home or self-care (01) ==
LOC: EN 11:55 → AC 11:56
PROVIDERS: Visit Provider Internal Medicine Gastroenterology
PROC: 0DJD8ZZ Inspection of Lower Intestinal Tract, Via Natural or Artificial Opening Endoscopic (ICD-10-PCS; CPT 45378; principal; 2025-04-07 12:55)
DX: Z12.11 Encounter for screening for malignant neoplasm of colon (principal); N18.32 Chronic kidney disease, stage 3b; K22.2 Esophageal obstruction; D12.3 Benign neoplasm of transverse colon; D12.5 Benign neoplasm of sigmoid colon; K52.9 Noninfective gastroenteritis and colitis, unspecified; R13.10 Dysphagia, unspecified; K57.30 Diverticulosis of large intestine without perforation or abscess without bleeding; I12.9 Hypertensive chronic kidney disease with stage 1 through stage 4 chronic kidney disease, or unspecified chronic kidney disease; E78.5 Hyperlipidemia, unspecified; K21.9 Gastro-esophageal reflux disease without esophagitis; Z79.899 Other long term (current) drug therapy; G47.33 Obstructive sleep apnea (adult) (pediatric)
CPT/HCPCS: 45385; 45380; 43239; 43248; 88305; C1769; J2405